=== PATIENT | male | born 1955 | race Hispanic/Latino ===

== ENCOUNTER 2022-07-25 20:23 | Inpatient (IN) | payer SELFPAY ==
[~2022-07-25] VITALS: Ht 165.1 cm; Wt 90.0 kg
--- NOTE | 2022-07-25 20:24 | NUR ---
PT HERE VIA EMS
[2022-07-25 21:38] LABS: HEMATOCRIT 40.8 % (39.0-50.0); HEMOGLOBIN 14.2 g/dl (14.0-18.0); IMMATURE GRANULOCYTES 0.4 % (0.0-5.0); MEAN CELL VOLUME 96.7 fL CALC (80.0-100.0); MEAN CORPUSCULAR HGB 33.6 pG CALC (26.0-32.0); MEAN CORPUSCULAR HGB CONC 34.8 g/dL CAL (32.0-36.0); NEUT# 8.44 thou/uL (1.82-7.42); RED BLOOD COUNT 4.22 mill/uL (4.70-6.10); RED CELL DISTRI WIDTH 13.1 % (11.5-15.5)
[2022-07-25 21:42] LABS: ALBUMIN 3.7 g/dL (3.2-5.0); ALKALINE PHOSPHATASE 136 u/l (38-126); ANION GAP 26 (6-22 (CALC)); BILIRUBIN, TOTAL 2.8 mg/dL (0.0-1.4); BUN 16 mg/dL (8-23); BUN/CREATININE RATIO 15 (12-20 (CALC)); CARBON DIOXIDE 17 mmol/l (22-30); CHLORIDE 93 mmol/l (95-108); CREATININE 1.1 mg/dL (0.7-1.3); ETHYL ALCOHOL 0 mg/dl (0-30); GFR FOR AFR.AMER. > 60 ML/MIN (>=60 (CALC)); GFR OTHER RACES > 60 ML/MIN (>=60 (CALC)); MAGNESIUM 1.8 mg/dL (1.6-2.3); POTASSIUM 3.6 mmol/l (3.5-5.1); SGOT/AST 196 u/l (19-48); SODIUM 133 mmol/l (137-146)
[2022-07-25 21:52] LABS: INTERNATIONAL NORMALIZED RATIO 1.5 RATIO (0.7-1.3); PROTHROMBIN TIME 14.5 SECONDS (9.0-12.5)
--- NOTE | 2022-07-25 21:53 | NUR ---
PATIENT HAD ARRIVED VIA EMS IN WET, COLD CLOTHING AND COVERED IN FECES AND DIRT. CLOTHING REMOVED AND PATIENT BATHED IN WARM WATER. ASSESSED VITALS AND EKG. HR 180S TO 200 RANGE. CARDIZEM 20 MG IV PUSH INITIATED. PATIENT SHIVERING AND UNCOMFORTABLE EVEN WITH BLANKETS. MILAN HUGGER PLACED ON PATIENT AND SOCKS ON FEET. ORAL TEMP IS WNL, BUT PATIENT FINGERS COLD TO TOUCH. PATIENT IS IN BED RECEIVING IV FLUIDS ON CARDIZEM DRIP TITRATED TO 10/HR. AWAITING LAB RESULTS. SAT READING NOT ACCURATE DUE TO PATIENT FINGER TEMPERATURE.
[2022-07-25 22:10] LABS: MYOGLOBIN 3672 ng/mL (0 - 121)
[2022-07-25 22:11] LABS: CPK 4877 u/l (52-200)
[2022-07-25 23:13] LABS: TSH, 3RD GENERATION 0.72 uIU/mL (0.47 - 4.68)
[2022-07-26] VITALS (75 sets, daily range): BP systolic 85–203; BP diastolic 22–174
--- NOTE | 2022-07-26 02:49 | NUR ---
CALLED REPORT TO ICU. HORACIO TOOK REPORT. PATIENT TO ICU 3.
--- NOTE | 2022-07-26 03:00 | NUR ---
67 yr old male admitted icu3 per stretcher from er. incont of urine. pt cleansed. diaper applied. transferred x4 to bed. bed weight obtained. translated per evette. pt has tremors & is confused. pt doesn't answer questions asked. director cardiac shows a fib. ivf infusing per lfa iv. #20 lac saline lock. history per er record. fall precautions cont. bed alarm activated.
--- NOTE | 2022-07-26 04:15 | NUR ---
lab here. blood drawn.
[2022-07-26 04:47] LABS: HEMATOCRIT 35.3 % (39.0-50.0); HEMOGLOBIN 12.5 g/dl (14.0-18.0); IMMATURE GRANULOCYTES 0.3 % (0.0-5.0); MEAN CELL VOLUME 95.7 fL CALC (80.0-100.0); MEAN CORPUSCULAR HGB 33.9 pG CALC (26.0-32.0); MEAN CORPUSCULAR HGB CONC 35.4 g/dL CAL (32.0-36.0); NEUT# 5.3 thou/uL (1.82-7.42); RED BLOOD COUNT 3.69 mill/uL (4.70-6.10); RED CELL DISTRI WIDTH 12.9 % (11.5-15.5)
[2022-07-26 04:55] LABS: ALKALINE PHOSPHATASE 94 u/l (38-126); BILIRUBIN, TOTAL 2.5 mg/dL (0.0-1.4); BUN 13 mg/dL (8-23); BUN/CREATININE RATIO 22 (12-20 (CALC)); CHLORIDE 99 mmol/l (95-108); CREATININE 0.6 mg/dL (0.7-1.3); GFR FOR AFR.AMER. > 60 ML/MIN (>=60 (CALC)); GFR OTHER RACES > 60 ML/MIN (>=60 (CALC)); SGOT/AST 159 u/l (19-48); SODIUM 134 mmol/l (137-146)
[2022-07-26 05:04] LABS: ALBUMIN 2.7 g/dL (3.2-5.0); ANION GAP 13 (6-22 (CALC)); CARBON DIOXIDE 25 mmol/l (22-30); CPK 2821 u/l (52-200); POTASSIUM 2.7 mmol/l (3.5-5.1); TOTAL PROTEIN 6.1 g/dL (6.3-8.2)
--- NOTE | 2022-07-26 08:36 | NUR ---
HAND OFF REPORT GIVEN TO STEFANO WALSH, PATIENT TO M/S UNIT WITH TELE ROOM 278.
--- NOTE | 2022-07-26 08:37 | NUR ---
DISREGARD PREVIOUS NOTE, WRONG CHART.
--- NOTE | 2022-07-26 10:53 | NUR ---
Pt screened for OT services; no OT treatment recommended at this time.
[2022-07-26 17:36] LABS: URINE BILIRUBIN - DIPSTICK NEGATIVE (NEGATIVE); URINE BLOOD DIPSTICK MODERATE (NEGATIVE); URINE COLOR YELLOW; URINE GLUCOSE - DIPSTICK 250 mg/dL (NEGATIVE); URINE KETONE NEGATIVE (NEGATIVE); URINE LEUK ESTERASE NEGATIVE (NEGATIVE); URINE PROTEIN - DIPSTICK NEGATIVE (NEG-TRACE); URINE UROBILINOGEN - DIPSTICK >=8.0 E.U./dL (0.2)
[2022-07-26 17:39] LABS: HEMATOCRIT 35.3 % (39.0-50.0); HEMOGLOBIN 12.4 g/dl (14.0-18.0); IMMATURE GRANULOCYTES 0.7 % (0.0-5.0); MEAN CELL VOLUME 96.2 fL CALC (80.0-100.0); MEAN CORPUSCULAR HGB 33.8 pG CALC (26.0-32.0); MEAN CORPUSCULAR HGB CONC 35.1 g/dL CAL (32.0-36.0); NEUT# 3.78 thou/uL (1.82-7.42); RED BLOOD COUNT 3.67 mill/uL (4.70-6.10); RED CELL DISTRI WIDTH 13.1 % (11.5-15.5)
[2022-07-26 17:41] LABS: URINE NITRITE - DIPSTICK NEGATIVE (Negative)
[2022-07-26 17:52] LABS: URINE WBC 0-2 WBC/hpf (0-5)
[2022-07-26 17:55] LABS: ALBUMIN 2.6 g/dL (3.2-5.0); BUN 10 mg/dL (8-23); CARBON DIOXIDE 29 mmol/l (22-30); CHLORIDE 101 mmol/l (95-108); CPK 1542 u/l (52-200); CREATININE 0.5 mg/dL (0.7-1.3); GFR FOR AFR.AMER. > 60 ML/MIN (>=60 (CALC)); GFR OTHER RACES > 60 ML/MIN (>=60 (CALC)); POTASSIUM 2.6 mmol/l (3.5-5.1); SODIUM 136 mmol/l (137-146)
[2022-07-26 18:03] LABS: MYOGLOBIN 415 ng/mL (0 - 121)
--- NOTE | 2022-07-26 20:00 | NUR ---
dr caraballo called this journalists and other writers. update given.
--- NOTE | 2022-07-26 20:15 | NUR ---
eyes closed. nad. no apparent d/t's. no sz. o2 cont per nc. compliance monitor shows a fib. ivf infusing well. solano cath in place. urine cloudy ronen. requires total care for all needs. turned & repositiond. fall precautions & bed alarm conts.
--- NOTE | 2022-07-26 21:15 | NUR ---
pt is VERY hot. temp 98.8 per forehead(gun). temp 104.1 rectal. tylenol 650mg supp inserted, ice packs applied to bilat armpits, blanket removed. air conditioning lowered. dr caraballo notified. orders rec'd.
--- NOTE | 2022-07-26 22:30 | NUR ---
[id number] temp 103.1 rectal. toradol 30mg iv given. rt @ bedside, sternal rub done & he thinks pt is less responsive. requested rt to draw abg. results rec'd. o2 increased to 3 l/m. ativan gtt decreased to 1mghr. & pt remains sedated
--- NOTE | 2022-07-26 23:00 | NUR ---
lou from ct called this rfp writer-informed [address] would be 2340. instructed her ct could be done @ midnight.
[2022-07-27] VITALS (57 sets, daily range): BP systolic 70–115; BP diastolic 39–81
--- NOTE | 2022-07-27 00:30 | NUR ---
to ct per bed accompanied by this life insurance underwriter & riveting machine operator automatic.
--- NOTE | 2022-07-27 01:00 | NUR ---
returned from ct.
--- NOTE | 2022-07-27 02:00 | NUR ---
eyes closed. ivf cont. compliance monitor shows a fib. poorly responsive.
--- NOTE | 2022-07-27 04:30 | NUR ---
dr caraballo called this board writer. updated on pts condition. orders rec'd.
--- NOTE | 2022-07-27 06:00 | NUR ---
ivf cont. vitals improving. athletic monitor shows a fib.
[2022-07-27 06:18] LABS: HEMATOCRIT 35.6 % (39.0-50.0); HEMOGLOBIN 11.9 g/dl (14.0-18.0); MEAN CELL VOLUME 100.8 fL CALC (80.0-100.0); MEAN CORPUSCULAR HGB 33.7 pG CALC (26.0-32.0); MEAN CORPUSCULAR HGB CONC 33.4 g/dL CAL (32.0-36.0); RED BLOOD COUNT 3.53 mill/uL (4.70-6.10); RED CELL DISTRI WIDTH 14.4 % (11.5-15.5)
[2022-07-27 06:38] LABS: INTERNATIONAL NORMALIZED RATIO 1.9 RATIO (0.7-1.3); PROTHROMBIN TIME 18.4 SECONDS (9.0-12.5)
[2022-07-27 06:45] LABS: ALBUMIN 2.1 g/dL (3.2-5.0); ALKALINE PHOSPHATASE 71 u/l (38-126); BUN 15 mg/dL (8-23); BUN/CREATININE RATIO 15 (12-20 (CALC)); CHLORIDE 106 mmol/l (95-108); CPK 1277 u/l (52-200); GFR FOR AFR.AMER. > 60 ML/MIN (>=60 (CALC)); GFR OTHER RACES > 60 ML/MIN (>=60 (CALC)); MAGNESIUM 1.8 mg/dL (1.6-2.3); POTASSIUM 2.7 mmol/l (3.5-5.1); SODIUM 142 mmol/l (137-146); TOTAL PROTEIN 5.2 g/dL (6.3-8.2)
[2022-07-27 06:56] LABS: ANION GAP 17 (6-22 (CALC)); BILIRUBIN, TOTAL 4.3 mg/dL (0.0-1.4); CARBON DIOXIDE 22 mmol/l (22-30); SGOT/AST 456 u/l (19-48)
--- NOTE | 2022-07-27 07:25 | NUR ---
pt resting in bed with eyes closed; no acute distress noted; assessment completed at this time; pupils reactive; pt on verbal, semicon; no reaction to visual threats; no s/sx of pain noted; no n/v; resp even and unlabored; lungs coarse throughout; skin color wnl; o2 per nc at 3L; hr irreg; wk pulses; trace edema noted; afib on monitor; abd soft with bs hypoactive; no bm noted per fiction and nonfiction prose writer; solano to gravity; #20 to rac with amio gtt infusing at 1mg/min; #20 lfa (ems) to lfa with ivf, ativan gtt 1mg/hr; #20 to lac with levophed gtt infusing at 10mcg/min; no redness or edema noted at site; wounds noted to abd fold, sacrum, groin; repositioned; will continue to monitor
--- NOTE | 2022-07-27 08:04 | NUR ---
RESTING IN BED WITH EYES CLOSED; NO ACTUTE DISTRESS NOTED; O2 PER NC; WILL CONTINUE TO MONITOR
--- NOTE | 2022-07-27 08:44 | NUR ---
Dr Zendejas present at bedside to assess pt
--- NOTE | 2022-07-27 09:19 | NUR ---
SPEECH PATHOLOGY-- COMMUNITY HEALTH WORKER ATTEMPTED TO SEE PT. COMMUNITY HEALTH WORKER UNABLE TO WAKE PT. WILL ATTEMPT AT ANOTHER TIME.
--- NOTE | 2022-07-27 10:08 | NUR ---
resting in bed with eyes closed; appears slightly more arousable; reacts to tactile stimuli, nail bed pressure; iv intact; will continue to monitor
--- NOTE | 2022-07-27 10:37 | NUR ---
Dr Zendejas informed of o2 sat of 84%; RT notified for abg;
--- NOTE | 2022-07-27 10:56 | NUR ---
ABG results reviewed with ; o2 currently at 8L NC; awaiting others
--- NOTE | 2022-07-27 11:18 | NUR ---
Dr Zendejas updated in pt condition; o2 sat improved; pt has laila suctioned well; o2 sat currently 94% on 8L NC; staff to continue with current treatment; will continue to monitor
--- NOTE | 2022-07-27 11:59 | NUR ---
continues to rest with eyes closed; no acute distress noted; ID with Dr Swain completed via TeleHealth; solano to gravity; afib on monitor; will continue to monitor
--- NOTE | 2022-07-27 13:08 | NUR ---
S: KYM CLINE is a 67 M who presents with severe sepsis. He has a history of chronic alcohol abuse. All medications in patient's chart were reviewed. O: VS: BP 96/61 mmHg, P 113 bpm, RR 28 bpm, T 98.5 F W 87.997 kg, HT 165.1 cm, Scr= 1 mg/dL, CrCl= 73 ml/min A: Blood culture is pending. P: Patient is on azithromycin 500mg IV Q24H and cefepime 2g IV Q8H. Vancomycin ordered for pharmacy to dose. Start Vancomycin 1g IV Q12H. Vancomycin trough is drawn before the 4th dose on 07/29/2022 @ 0200. Vancomycin goal trough is between 15-20 mcg/ml. Pharmacy will follow and or advise on antibiotics use as needed.
--- NOTE | 2022-07-27 13:52 | NUR ---
US at bedside
--- NOTE | 2022-07-27 14:00 | NUR ---
resting in bed with eyes closed; appears more arousable; movement to upper extremmities noted; iv's intact and patent; afib on monitor; solano to gravity; repositioned; will continue to monitor
--- NOTE | 2022-07-27 15:01 | NUR ---
Dr Burgos called this fha underwriter; wound status explained; will continue to monitor
--- NOTE | 2022-07-27 15:31 | NUR ---
wound care DRs present at bedside
--- NOTE | 2022-07-27 16:11 | NUR ---
resting with eye closed; repositioned; afib on monitor; solano to gravity; will continue to monitor
--- NOTE | 2022-07-27 17:35 | NUR ---
TELEHEALTH CONSULT COMPLETED WITH DR ESTRELLA
--- NOTE | 2022-07-27 17:50 | NUR ---
Dr Zendejas updated on pt condition; made aware of K+; orders to be placed
--- NOTE | 2022-07-27 17:59 | NUR ---
resting with eyes closed; more movement noted to upper extremities; more arousable; solano to gravity; iv intact and patent; repositioned; wound care provided; afib on monitor;
--- NOTE | 2022-07-27 18:20 | NUR ---
; pt transported to CT Scan via bed accompanied by RNs x2; dry paste supervisor in place; o2 per nc; afib on monitor; gtts continued
--- NOTE | 2022-07-27 19:15 | NUR ---
very drowsy. does not open eyes. speaks in low mumbled tones. translated per louie alonzo. knows his name, knows he's in the hospital, says he doesn't live anywhere, he doesn't have any family, ambulance brought him in & he hangs out @ the "[employer] [place] o2 cont per nc. athletic monitor shows a fib. ivf infusing well. solano cath in place. urine cloudy ronen. turned & repositioned. requires total care for all needs.
--- NOTE | 2022-07-27 22:00 | NUR ---
eyes closed. no acute distress. diagnostic cardiac sonographer shows a fib.
[2022-07-28] VITALS (62 sets, daily range): BP systolic 92–133; BP diastolic 63–94
--- NOTE | 2022-07-28 00:14 | NUR ---
lab here. blood drawn.
--- NOTE | 2022-07-28 02:31 | NUR ---
lab here. blood drawn.
[2022-07-28 02:43] LABS: HEMATOCRIT 37.2 % (39.0-50.0); HEMOGLOBIN 12.7 g/dl (14.0-18.0); MEAN CELL VOLUME 100.5 fL CALC (80.0-100.0); MEAN CORPUSCULAR HGB 34.3 pG CALC (26.0-32.0); MEAN CORPUSCULAR HGB CONC 34.1 g/dL CAL (32.0-36.0); RED BLOOD COUNT 3.7 mill/uL (4.70-6.10); RED CELL DISTRI WIDTH 15.1 % (11.5-15.5)
[2022-07-28 03:01] LABS: ALBUMIN 2.4 g/dL (3.2-5.0); ALKALINE PHOSPHATASE 59 u/l (38-126); ANION GAP 13 (6-22 (CALC)); BILIRUBIN, TOTAL 5.2 mg/dL (0.0-1.4); BUN 24 mg/dL (8-23); BUN/CREATININE RATIO 27 (12-20 (CALC)); CARBON DIOXIDE 25 mmol/l (22-30); CHLORIDE 110 mmol/l (95-108); CPK 660 u/l (52-200); CREATININE 0.9 mg/dL (0.7-1.3); GFR FOR AFR.AMER. > 60 ML/MIN (>=60 (CALC)); GFR OTHER RACES > 60 ML/MIN (>=60 (CALC)); INTERNATIONAL NORMALIZED RATIO 1.6 RATIO (0.7-1.3); LIPASE 1150 u/l (23-300); MAGNESIUM 2.1 mg/dL (1.6-2.3); POTASSIUM 3.5 mmol/l (3.5-5.1); PROTHROMBIN TIME 15.5 SECONDS (9.0-12.5); SGOT/AST 412 u/l (19-48); SODIUM 144 mmol/l (137-146); TOTAL PROTEIN 5.7 g/dL (6.3-8.2)
--- NOTE | 2022-07-28 04:00 | NUR ---
eyes closed. no resp distress. hand i thermal cutter shows a fib. ivf infusing well. o2 cont.
--- NOTE | 2022-07-28 05:00 | NUR ---
bed bath & bed change x2 assists.
--- NOTE | 2022-07-28 06:10 | NUR ---
sao2 86%. rt notified.
--- NOTE | 2022-07-28 08:00 | NUR ---
pt resting in bed with eyes closed; no acute distress noted; pt moans and withdraws to tactile stimuli; non verbal besides moaning; assessment completed at this time; pupils reactive; no s/sx/ facial grimaces of pain noted; no n/v noted; resp even and unlabored; lungs coarse anter with rales noted to secret code expert bases; skin color wnl; o2 per nc at 3L with 100% NRB; o2 sat noted 100%; will attempt to titrate o2; brooch maker novelty cough noted; hr irreg; doppler pedal pulses; edema noted to ble and bilat arms; afib on monitor; abd soft with bs hypoactive; no bm noted per software writer; solano to gravity draining clear ronen urine; cath strap intact; #20 flushed and leaking at rac; catheter removed with catheter tip intact; #20 to lac patent with ativan gtt infusing at 1mg/hr; #20 to lfa with ivf, levophed gtt infusing at 10mcg/min; no redness or edema noted at site; excoriation/redness noted to abd fold; dressing cdi to sacrum; repositioned; call [facility] within reach; will continue to monitor closely
--- NOTE | 2022-07-28 09:20 | NUR ---
Dr Zendejas present at bedside to assess pt
--- NOTE | 2022-07-28 10:08 | NUR ---
resting in bed with eyes closed; no apparent distress noted; solano to gravity; afib on monitor; repositioned; ativan gt titrated off to assess neuro status while awake; will continue to monitor
--- NOTE | 2022-07-28 12:13 | NUR ---
pt sitting at the side of the bed eating lunch; offers no complaints; iv intact and patent; levophed at 6mcg/min; no redness or edema noted at sites; call light within reach; will continue to monitor
--- NOTE | 2022-07-28 12:17 | NUR ---
resting in bed with eyes closed; moans out occasionally; remains nonverbal with staff; more arounsable but does not make eye contact or track staff; solano to gravity; afib on monitor; repositioned; will continue to monitor-
--- NOTE | 2022-07-28 14:00 | NUR ---
resting in bed with eyes closed; attempts to open right eye to tactile stimuli; moans/garbled speech; repositioned; dressing to sacrum cdi; afib on monitor; solano to gravity; o2 per HFNC at 6L; will continue to monitor
--- NOTE | 2022-07-28 14:22 | NUR ---
US Shade present at bedside
--- NOTE | 2022-07-28 16:08 | NUR ---
resting in bed with eyes closed; more arousable than this am; unintelligible speech noted; repositioned; solano to gravity; afib on monitor; o2 per nc; will continue to monitor
--- NOTE | 2022-07-28 17:11 | NUR ---
suctioned for blood tinged sputum; lg amount
--- NOTE | 2022-07-28 17:51 | NUR ---
continues to rest in bed with eyes closed; does attempt to open eyes with loud stimuli; iv intact and patent; no redness or edema noted at site; levophed gtt at 6mcg/min; solano to gravity; o2 per nc; repositioned to right side;
--- NOTE | 2022-07-28 18:14 | NUR ---
Dr Zendejas informed per automotive service writer of rhonchi lung sounds; informed pt has been suctioned for good amount of blood tinged sputum;
[2022-07-29] VITALS (167 sets, daily range): BP systolic 79–142; BP diastolic 53–112
[2022-07-29 02:20] LABS: HEMATOCRIT 40.6 % (39.0-50.0); HEMOGLOBIN 13.5 g/dl (14.0-18.0); MEAN CELL VOLUME 101.2 fL CALC (80.0-100.0); MEAN CORPUSCULAR HGB 33.7 pG CALC (26.0-32.0); MEAN CORPUSCULAR HGB CONC 33.3 g/dL CAL (32.0-36.0); RED BLOOD COUNT 4.01 mill/uL (4.70-6.10); RED CELL DISTRI WIDTH 15.5 % (11.5-15.5)
[2022-07-29 02:31] LABS: INTERNATIONAL NORMALIZED RATIO 1.4 RATIO (0.7-1.3); PROTHROMBIN TIME 13.3 SECONDS (9.0-12.5)
[2022-07-29 02:32] LABS: ALBUMIN 2.4 g/dL (3.2-5.0); ANION GAP 10 (6-22 (CALC)); BILIRUBIN, TOTAL 4.2 mg/dL (0.0-1.4); BUN 17 mg/dL (8-23); BUN/CREATININE RATIO 31 (12-20 (CALC)); CARBON DIOXIDE 27 mmol/l (22-30); CHLORIDE 114 mmol/l (95-108); CREATININE 0.6 mg/dL (0.7-1.3); GFR FOR AFR.AMER. > 60 ML/MIN (>=60 (CALC)); GFR OTHER RACES > 60 ML/MIN (>=60 (CALC)); MAGNESIUM 2.2 mg/dL (1.6-2.3); POTASSIUM 3.1 mmol/l (3.5-5.1); SGOT/AST 415 u/l (19-48); SODIUM 148 mmol/l (137-146); TOTAL PROTEIN 5.9 g/dL (6.3-8.2)
[2022-07-29 02:36] LABS: ALKALINE PHOSPHATASE 123 u/l (38-126)
--- NOTE | 2022-07-29 03:13 | NUR ---
Dr. Zendejas informed of platelet and potassium value.
--- NOTE | 2022-07-29 05:33 | NUR ---
0525 DR HARRIS AT BEDSIDE TO INTUBATE PATIENT. 0527 20MG ETOMIDATE GIVEN IVP BY MD, FOLLOWED BY 100MG SUCCINYLCHOLINE 0530 PATIENT INTUBATED WITH #8ETT, 24CM AT THE LIP, POSITIVE ETCO2 COLOR CHANGE, AND BILATERAL BREATH SOUNDS CXR ORDERED TO CONFIRM PLACEMENT.
--- NOTE | 2022-07-29 05:39 | NUR ---
Patient unesponsive and having shallow breathing. Blood gas done by respiratory. Dr. Zendejas infromed of result. Intubation was ordred. 0530: Patient intubated by Dr. Sexton.
--- NOTE | 2022-07-29 05:46 | NUR ---
0450: Patient bathe. Desaturating and unresponsive. Respiratory was informed.
--- NOTE | 2022-07-29 09:10 | NUR ---
Dr Velez came up to place RIJ central line, OG also placed and verified by x-ray, he is on no sedation but only responds to pain, non-purposeful movements
--- NOTE | 2022-07-29 11:48 | NUR ---
pt with some more movement but remains non-purposeful, potassium replaced
--- NOTE | 2022-07-29 14:28 | NUR ---
pt given complete bath with linen change, somewhat responsive but remains non-purposeful
--- NOTE | 2022-07-29 14:35 | NUR ---
PT PRESENTS WITH SEVERE SEPSIS. ALL MEDS IN PTS CHART HAVE BEEN REVIEWED. RENAL FUNCTION REMAINS UNCHANGED WITH SCR 0.9 (1) AND CRCL 73 VANCOMYCIN TROUGH ON 07/29 @ 0200 = 10 MCG/ML, GOAL = 15-20 MCG/ML INCREASE TO 1G IV Q8H. WILL RE-CHECK TROUGH 07/30 @ 0230. [facility]
--- NOTE | 2022-07-29 17:12 | NUR ---
pt became more awake and was started on propofol
[2022-07-30] VITALS (62 sets, daily range): BP systolic 72–128; BP diastolic 39–90
[2022-07-30 02:53] LABS: HEMOGLOBIN 11.8 g/dl (14.0-18.0); IMMATURE GRANULOCYTES 0.9 % (0.0-5.0); MEAN CELL VOLUME 98.6 fL CALC (80.0-100.0); MEAN CORPUSCULAR HGB 33.8 pG CALC (26.0-32.0); MEAN CORPUSCULAR HGB CONC 34.3 g/dL CAL (32.0-36.0); NEUT# 5.01 thou/uL (1.82-7.42); RED BLOOD COUNT 3.49 mill/uL (4.70-6.10); RED CELL DISTRI WIDTH 15.3 % (11.5-15.5)
[2022-07-30 02:55] LABS: HEMATOCRIT 34.4 % (39.0-50.0)
[2022-07-30 03:01] LABS: INTERNATIONAL NORMALIZED RATIO 1.3 RATIO (0.7-1.3); PROTHROMBIN TIME 12.7 SECONDS (9.0-12.5)
[2022-07-30 03:02] LABS: ALBUMIN 2.1 g/dL (3.2-5.0); BILIRUBIN, TOTAL 3.9 mg/dL (0.0-1.4); CREATININE 1.5 mg/dL (0.7-1.3); POTASSIUM 2.7 mmol/l (3.5-5.1); TOTAL PROTEIN 5.2 g/dL (6.3-8.2)
--- NOTE | 2022-07-30 03:21 | NUR ---
Informed [facility] regarding VAncomycin Trough - 29. Dose held.
--- NOTE | 2022-07-30 10:02 | NUR ---
Dr Burton has been to see pt, pt will continue sedated and re-evaluated tomorrow for extubation, SCD's applied, OG to russ ZEPEDA to bedside, pt is edematous with +2 generalized edema, pupils equal and non-reactive 2mm, thick/harrison sputum, remains A-fib with Levophed infusing
--- NOTE | 2022-07-30 11:04 | NUR ---
Pt intubated over weekend will required new order to resume PT.
--- NOTE | 2022-07-30 15:09 | NUR ---
Dr Truong has called and seen pt, POC reviewed
--- NOTE | 2022-07-30 19:30 | NUR ---
eyes closed. vent cont. sealing machine operator shows a fib. ivf infusing per rij tlc. solano cath in place. urine light ronen. bilat scds on. turned & repositioned. requires total care for all needs.
--- NOTE | 2022-07-30 22:00 | NUR ---
vent cont. sx prn per rt. case monitor shows a fib.
[2022-07-31] VITALS (51 sets, daily range): BP systolic 81–152; BP diastolic 56–103
--- NOTE | 2022-07-31 00:01 | NUR ---
vent cont. no apparent distress. solano draining well
--- NOTE | 2022-07-31 02:00 | NUR ---
vent cont. no apparent ditress. conveyor monitor shows a fib.
--- NOTE | 2022-07-31 03:20 | NUR ---
Called [facility] and ordered air matress bed for patient. Recorded in log book.
--- NOTE | 2022-07-31 04:14 | NUR ---
blood drawn & sent to lab.
[2022-07-31 05:35] LABS: HEMATOCRIT 35.6 % (39.0-50.0); HEMOGLOBIN 12.7 g/dl (14.0-18.0); MEAN CELL VOLUME 95.7 fL CALC (80.0-100.0); MEAN CORPUSCULAR HGB 34.1 pG CALC (26.0-32.0); MEAN CORPUSCULAR HGB CONC 35.7 g/dL CAL (32.0-36.0); RED BLOOD COUNT 3.72 mill/uL (4.70-6.10); RED CELL DISTRI WIDTH 14.9 % (11.5-15.5)
[2022-07-31 05:49] LABS: INTERNATIONAL NORMALIZED RATIO 1.3 RATIO (0.7-1.3); PROTHROMBIN TIME 13.2 SECONDS (9.0-12.5)
--- NOTE | 2022-07-31 06:00 | NUR ---
vent cont unassisted by pt. ivf infusing well.
[2022-07-31 06:01] LABS: BILIRUBIN, TOTAL 3.7 mg/dL (0.0-1.4); CREATININE 1.6 mg/dL (0.7-1.3); MAGNESIUM 1.7 mg/dL (1.6-2.3); POTASSIUM 2.8 mmol/l (3.5-5.1); TOTAL PROTEIN 5.1 g/dL (6.3-8.2)
--- NOTE | 2022-07-31 07:30 | NUR ---
PT IS SLEEPING, EYES CLOSED. PT IS ON VENT 40/500/24/5. PT ASSESSMENT IS COMPLETE. PT IS AROUSABLE TO TOUCH. PT HAS BEEN SUCTIONED, AND SPUTUM SPECIMEN COLLECTED AT THIS TIME. PT R'CD PO, FACE AND JOSELINE CARE. PT UNABLE TO FOLLOW COMMANDS. PT IS CURRENTLY ON 20 MCG OF DIPRAVAN, LEVO AT 6 MCG. PT IS ON FALL PRECAUTIONS AND PT HAS BEEN REPOSITIONED. WILL CONTINUE TO MONITOR.
--- NOTE | 2022-07-31 08:30 | NUR ---
PT HAS BEEN TRIALED, DIPRAVAN HAS BEEN TURNED OFF. WILL CONTINUE TO MONITOR
--- NOTE | 2022-07-31 09:05 | NUR ---
PRESENT ON UNIT, PT HAS FAILED TO TAKE ANY SPONTANEOUS BREATHS. PLACED BACK ON DIPRAVAN @ 20MCG PER PHYS. WILL CONTINUE TO MONITOR PT.
--- NOTE | 2022-07-31 11:30 | NUR ---
PT IS RESTING, PT GRIMACES TO ANY PHYSICAL STIMLUATION. PT HAS NO CHANGE TO STATUS, WILL CONTINUE TO MONITOR.
--- NOTE | 2022-07-31 13:30 | NUR ---
PT HAS NO CHANGE TO ASSESSMENT AT THIS TIME. WILL CONTINUE TO MONITOR.
--- NOTE | 2022-07-31 14:00 | NUR ---
SPOKE TO DR. ESTRELLA, R'CD ORDERS TO START SEDATION VACATION. AND PLACING ADDITIONAL ORDERS. PT IS AROUSABLE TO PHYSICAL STIMULI. PT HAS R'CD PO CARE. AND U/S HAS COME IN TO DO PT. ECHO. WILL CONTINUE TO MONITOR.
--- NOTE | 2022-07-31 16:26 | NUR ---
ASSESSED PT, PT IS AWAKE. COUNSELING DIRECTOR BETTIE AT BEDSIDE AND ASKED PT OF HIS WISHES TO END OF LIFE. PT SHOOK HIS HEAD YES THAT HE WANTS TO LIVE. PT IS BEING CLOSELY MONITORED.
--- NOTE | 2022-07-31 19:15 | NUR ---
vent cont assisted by pt. eyes are open & pt is tracking this promotion writer. traffic monitor specialist shows a fib. ivf infusing well per rij tlc. solano cath in place urine lt ronen. bilat scds cont. has gen body edema. all exts elevated on pillows. fall precautions cont
--- NOTE | 2022-07-31 22:00 | NUR ---
remains off sedation. eyes open when care given. nad.
[2022-08-01] VITALS (43 sets, daily range): BP systolic 75–143; BP diastolic 52–87
--- NOTE | 2022-08-01 00:01 | NUR ---
vent cont assisted by pt. fast food worker shows a fib.
--- NOTE | 2022-08-01 02:00 | NUR ---
denzel simon assisted by
--- NOTE | 2022-08-01 04:20 | NUR ---
rt here. abgs drawn.
--- NOTE | 2022-08-01 05:00 | NUR ---
xray here. pcxr obtained. blood drawn & sent to lab. bed & bath done.
[2022-08-01 05:32] LABS: ALBUMIN 2.2 g/dL (3.2-5.0); CREATININE 2.1 mg/dL (0.7-1.3); INTERNATIONAL NORMALIZED RATIO 1.4 RATIO (0.7-1.3); POTASSIUM 2.9 mmol/l (3.5-5.1); PROTHROMBIN TIME 13.3 SECONDS (9.0-12.5)
--- NOTE | 2022-08-01 06:17 | NUR ---
SPOKE WITH PATRICK FROM [facility]. STAT DELIVERY FOR AIR MATTRESS IS PLACED. THERE WAS A MESSAGE HOLDING UP SHIPMENT.
--- NOTE | 2022-08-01 07:35 | NUR ---
spoke with Dr Reyez, updated on pt condition
--- NOTE | 2022-08-01 08:50 | NUR ---
pt switched to spontaneous/CPAP setting on vent for weaning trial, he is awake and alert
[2022-08-01 08:56] LABS: HEMATOCRIT 36.1 % (39.0-50.0); HEMOGLOBIN 12.4 g/dl (14.0-18.0); MEAN CELL VOLUME 97.8 fL CALC (80.0-100.0); MEAN CORPUSCULAR HGB 33.6 pG CALC (26.0-32.0); MEAN CORPUSCULAR HGB CONC 34.3 g/dL CAL (32.0-36.0); RED BLOOD COUNT 3.69 mill/uL (4.70-6.10); RED CELL DISTRI WIDTH 15.2 % (11.5-15.5)
--- NOTE | 2022-08-01 09:24 | NUR ---
PT. EXTUBATED AND PLACED ON 2L NC.
--- NOTE | 2022-08-01 09:25 | NUR ---
pt successfuly extubated, he remains awake and alert, has loose cough, placed on 2 Lpm NC
--- NOTE | 2022-08-01 10:25 | NUR ---
speech in to eval pt for swallow study
--- NOTE | 2022-08-01 12:12 | NUR ---
pt repositioned, sitting up in bed, small sips of water given, pt then with wet/loose cough, HOB remains elevated, awaiting speech to come re-eval
--- NOTE | 2022-08-01 13:39 | NUR ---
Dr Truong to see pt on video
--- NOTE | 2022-08-01 13:53 | NUR ---
video swallow eval finished, pt sitting up in bed with no sign of distress
--- NOTE | 2022-08-01 15:22 | NUR ---
pt moved to air matress bed, re-weighed with new bed scale
--- NOTE | 2022-08-01 15:38 | NUR ---
O2 SAT 100% ON 2L NC. O2 PLACED STANDBY.
--- NOTE | 2022-08-01 16:21 | NUR ---
pt awake/alert, moving all extremities, wet, productive cough, titrating levophed off
--- NOTE | 2022-08-01 18:25 | NUR ---
HOB raised and pillows behind back, pt awake/alert, attempted to feed pt dinner, he was found to be pocketing food, also coughs after spoon sips of nectar thick water, BP remains stable with levophed off
--- NOTE | 2022-08-01 19:30 | NUR ---
awake. coarse breath sounds bilat. no acute resp diff. hob elevated. has loose nonprod cough. ekg monitor shows a fib. rij tlc in place & saline locked. gen edema appears decreased this shift. solano cath in place. urine yellow. turned & repositioned. requires total care for all needs. air mattress conts.
--- NOTE | 2022-08-01 22:00 | NUR ---
awake. no distress. has prod cough of tcreamy yellow sputum.
[2022-08-02] VITALS (52 sets, daily range): BP systolic 96–151; BP diastolic 49–102
--- NOTE | 2022-08-02 00:01 | NUR ---
awake. no distress. groundwater monitoring technician shows a fib.
--- NOTE | 2022-08-02 02:00 | NUR ---
awake. has been repositioned in bed. no distress.
--- NOTE | 2022-08-02 04:00 | NUR ---
awake. cont to have productive cough. no distress.
--- NOTE | 2022-08-02 04:20 | NUR ---
blood drawn & sent to lab.
--- NOTE | 2022-08-02 05:56 | NUR ---
has been aawake all shift. no resp distress. groundwater monitoring technician shows a fib.
[2022-08-02 06:40] LABS: HEMATOCRIT 34.5 % (39.0-50.0); HEMOGLOBIN 12.1 g/dl (14.0-18.0); MEAN CELL VOLUME 96.9 fL CALC (80.0-100.0); MEAN CORPUSCULAR HGB CONC 35.1 g/dL CAL (32.0-36.0); RED BLOOD COUNT 3.56 mill/uL (4.70-6.10); RED CELL DISTRI WIDTH 15.5 % (11.5-15.5)
[2022-08-02 07:15] LABS: ALBUMIN 2.1 g/dL (3.2-5.0); BILIRUBIN, TOTAL 4.6 mg/dL (0.0-1.4); CREATININE 2.1 mg/dL (0.7-1.3); MAGNESIUM 1.8 mg/dL (1.6-2.3); POTASSIUM 2.6 mmol/l (3.5-5.1); TOTAL PROTEIN 5.4 g/dL (6.3-8.2)
--- NOTE | 2022-08-02 08:00 | NUR ---
patient is a/o to self, very soft spoken, garbled speech. 3mm perrla. denies pain at this time. coarse lung sounds throughout. active bowel sounds. firm distended abdomen. dry warm skin. small openings on lower abdomen/groin area. buttpaste applied to areas needed. temp 96.9F. weak pulses. scds in place. sat him up right to drink small sips of water. tolerated well. weak hand machine cleaner. solano yellow urine. safety measures in place. call light in reach. will continue to monitor per hospital's policy.
--- NOTE | 2022-08-02 10:00 | NUR ---
PATIENT SITTING UP IN BED, SUCTIONED, REPOSITIONED AGAIN. SAFETY MEASURES IN PLACE.
--- NOTE | 2022-08-02 12:00 | NUR ---
COUPLE BITES OF APPLE SAUCE GIVEN, STARTED TO COUGH. THICKEN WATER GIVEN.
--- NOTE | 2022-08-02 16:00 | NUR ---
CLEANED, HAD A BM, NEW SHEETS, WASHED UP, MORE BUTT PASTE APPLIED.
--- NOTE | 2022-08-02 22:25 | NUR ---
patient asleep, Dr. Zendejas updated regarding pateint's status.
[2022-08-03] VITALS (25 sets, daily range): BP systolic 99–146; BP diastolic 66–97
--- NOTE | 2022-08-03 00:11 | NUR ---
patient asleep. BP 115/82. HR 83, sius rhythm in the monitor.
--- NOTE | 2022-08-03 00:38 | NUR ---
patient has large bowel movement. cleaned and turned. Sacral ulcer cleaned.
--- NOTE | 2022-08-03 02:02 | NUR ---
Patient asleep. Turned.
--- NOTE | 2022-08-03 03:39 | NUR ---
Patient awake. Able to drink water without problem. Turned
[2022-08-03 06:36] LABS: HEMATOCRIT 35.7 % (39.0-50.0); HEMOGLOBIN 12.4 g/dl (14.0-18.0); MEAN CELL VOLUME 97.5 fL CALC (80.0-100.0); MEAN CORPUSCULAR HGB 33.9 pG CALC (26.0-32.0); MEAN CORPUSCULAR HGB CONC 34.7 g/dL CAL (32.0-36.0); RED BLOOD COUNT 3.66 mill/uL (4.70-6.10); RED CELL DISTRI WIDTH 16.6 % (11.5-15.5)
[2022-08-03 06:43] LABS: ALBUMIN 2.1 g/dL (3.2-5.0); BILIRUBIN, TOTAL 4.9 mg/dL (0.0-1.4); CREATININE 2.2 mg/dL (0.7-1.3); TOTAL PROTEIN 5.6 g/dL (6.3-8.2)
[2022-08-03 06:48] LABS: POTASSIUM 3.2 mmol/l (3.5-5.1)
[2022-08-03 06:50] LABS: INTERNATIONAL NORMALIZED RATIO 1.4 RATIO (0.7-1.3); PROTHROMBIN TIME 13.3 SECONDS (9.0-12.5)
--- NOTE | 2022-08-03 08:00 | NUR ---
patiet is a/o, denies pain at this time. 3mm perrla. clear speech. crackles in all lung bases. active bowel sounds. soft distended abdomen. trace edema ble/bue. strong equal ahnd rooming house operator. no arm drifts. wound on coccyx, c/d/i. vitals are stable/ safety measures in place. call light in reach. will continue to monitor per hospital's policy.
--- NOTE | 2022-08-03 10:00 | NUR ---
patient is resting in bed
--- NOTE | 2022-08-03 12:00 | NUR ---
patient sitting up right, bites of food at a time.
--- NOTE | 2022-08-03 16:00 | NUR ---
patient washed and clean sheets applied on bed. changed dressing. buttpaste applied onto adbomen folds.
--- NOTE | 2022-08-03 17:58 | NUR ---
PATIENT RESTING VERY WELL IN BED.
[2022-08-04] VITALS (24 sets, daily range): BP systolic 91–123; BP diastolic 60–86
--- NOTE | 2022-08-04 00:22 | NUR ---
patient had BM. cleaned and made comfortable. Wound redressed.
--- NOTE | 2022-08-04 04:05 | NUR ---
patient asleep. Not in distress.
[2022-08-04 06:00] LABS: HEMATOCRIT 34.9 % (39.0-50.0); HEMOGLOBIN 12.1 g/dl (14.0-18.0); MEAN CORPUSCULAR HGB CONC 34.7 g/dL CAL (32.0-36.0); RED BLOOD COUNT 3.56 mill/uL (4.70-6.10)
--- NOTE | 2022-08-04 06:04 | NUR ---
patient in bed awake. Instructed to do deep breathing exercise.
[2022-08-04 06:32] LABS: ALBUMIN 2.2 g/dL (3.2-5.0); CREATININE 2.1 mg/dL (0.7-1.3); POTASSIUM 3.2 mmol/l (3.5-5.1)
--- NOTE | 2022-08-04 07:00 | NUR ---
Assumed care from NOC RN. Patient resting comfortably in bed. Safety measures activated. Bed alarm armed. VSS. NAD. Expresses no needs nor endorses any pain. iTRACE for IV therapies, central line assessed for patency. Carbajal draining to gravity, on RA. No other lines or drains present. No further interventions at this time.
[2022-08-04 07:02] LABS: INTERNATIONAL NORMALIZED RATIO 1.4 RATIO (0.7-1.3); PROTHROMBIN TIME 13.3 SECONDS (9.0-12.5)
--- NOTE | 2022-08-04 14:00 | NUR ---
Patient is resting comfortably in bed. In no acute distress. Easily aroused and reamins alert for conversation. Denies pain or needs at this time. Adequate SpO2 on RA. Tolerating oral intake. Incontinent of stool. Carbajal draining to gravity. SCDs in place. Bed alarm armed. All safety measures in place. Physical Medicine at bedside. Linens changed, bathed, dressing change this past hour with interventions.
--- NOTE | 2022-08-04 18:00 | NUR ---
Patient is resting comfortably in bed. In no acute distress. Easily aroused and reamins alert for conversation. Denies pain or needs at this time. Adequate SpO2 on RA. Tolerating oral intake. Incontinent of stool. Carbajal draining to gravity. SCDs in place. Bed alarm armed. All safety measures in place. -
--- NOTE | 2022-08-04 19:38 | NUR ---
BEDSIDE SHIFT REPORT DONE. PATIENT REPORTS NO DISCOMFORT. CALL LIGHT AND PERSONAL BELONGING WITHIN REACH. WILL CONTINUE TO MONITOR.
--- NOTE | 2022-08-04 21:41 | NUR ---
PATIENT SHIVERING TEMP CHECK 96.7 WARM BLANKETS ADDED WILL RECHECK AND CONTINUE TO MONITOR. PATIENT REPORTS NO DISCOMFORT. SAFETY MEASURES WNL
--- NOTE | 2022-08-04 22:12 | NUR ---
TEMP RECHECKED ITS AT 97 FAHRENHEIT. WILL CONTINUE TO MONITOR. PATIENT REPORTS NO DISCOMFORT.
[2022-08-05] VITALS (24 sets, daily range): BP systolic 82–119; BP diastolic 55–87
--- NOTE | 2022-08-05 02:52 | NUR ---
PATIENT SLEEPING. VITAL SIGNS WNL. WILL CONTINUE TO MONITOR.
--- NOTE | 2022-08-05 04:23 | NUR ---
PATIENT IS SLEEPING NO CHANGE. BED IS IN LOWEST POSITION AND CALL LIGHT WITHIN REACH. WILL CONTINUE TO MONITOR.
--- NOTE | 2022-08-05 06:18 | NUR ---
PATIENT IS RESTING COMFORTABLY IN BED. IN NO ACUTE DISTRESS. EASILY AROUSED AND REAMINS ALERT FOR CONVERSATION CONFUSED ALERT TO SELF AND STATING THAT HE IS IN THE HOSPITAL BUT NOT ABLE TO SAY WHERE. DENIES PAIN PROVIDED ORAL HYDRATION. ROTHMAN DRAINING TO GRAVITY COORDINATE MEASURING MACHINE OPERATOR OUTPUT WAS 350ML ORANGE IN COLOR. SCDS IN PLACE. DAILY WEIGHT 85.4 KG. PATIENT HAD TWO BM BROWN WATERY. WILL CONTINUE TO MONITOR.
[2022-08-05 06:33] LABS: HEMOGLOBIN 11.5 g/dl (14.0-18.0); IMMATURE GRANULOCYTES 4.4 % (0.0-5.0); MEAN CELL VOLUME 99.7 fL CALC (80.0-100.0); MEAN CORPUSCULAR HGB 33.7 pG CALC (26.0-32.0); MEAN CORPUSCULAR HGB CONC 33.8 g/dL CAL (32.0-36.0); NEUT# 6.26 thou/uL (1.82-7.42); RED BLOOD COUNT 3.41 mill/uL (4.70-6.10); RED CELL DISTRI WIDTH 17.2 % (11.5-15.5)
[2022-08-05 06:43] LABS: BILIRUBIN, TOTAL 4.5 mg/dL (0.0-1.4); CREATININE 2.1 mg/dL (0.7-1.3); MAGNESIUM 1.5 mg/dL (1.6-2.3); POTASSIUM 3.4 mmol/l (3.5-5.1); TOTAL PROTEIN 5.7 g/dL (6.3-8.2)
[2022-08-05 06:49] LABS: INTERNATIONAL NORMALIZED RATIO 1.4 RATIO (0.7-1.3); PROTHROMBIN TIME 13.4 SECONDS (9.0-12.5)
--- NOTE | 2022-08-05 08:00 | NUR ---
PT SEEN AT REST IN THE BED, ALERT, BUT ORIENTED TO SELF ONLY. PT HEARD MUMBLING, NOT UNDERSTOOD, MICRONESIAN ONLY. LUNGS CLEAR, RA. PRODUCTIVE COUGH CLEARS PHLEGM EFFECTIVELY.
--- NOTE | 2022-08-05 10:00 | NUR ---
PT ASSISTED OOB IN TO CHAIR DR GIBSON REQUESTED. PT DID NOT HELP MUCH, APPEARS WEAK.
--- NOTE | 2022-08-05 12:11 | NUR ---
PT BACK TO BED WITH ASSIST FROM TELLO, PT TOO WEAK TO BEAR WEIGHT. TV ON IN [place] LANGUAGE.
--- NOTE | 2022-08-05 14:00 | NUR ---
PT AT REST IN THE BED, NO CHANGE IN STATUS. NO DISTRESS. NSR.
--- NOTE | 2022-08-05 16:03 | NUR ---
PT POCKETING BITES OF FOOD, SPITS OUT LATER. PT AT REST IN THE BED, NO CHANGE IN STATUS.
--- NOTE | 2022-08-05 18:27 | NUR ---
PT PROVIDED JELLO FOR SUPPER HE DOES NOT POCKET IT. PT WITH INTACT DRESSING SEEN TO COCCYX. NO BM THIS SHIFT.
--- NOTE | 2022-08-05 20:00 | NUR ---
PT ALERT AND ORIENTED, IN BED. PT COMPLETED ORTHOSTATIC BLOOD PRESSURE. 114/63 FLAT IN BED, 114/54 SITTING, AND 104/46 STANDING. PT DENIES DIZZINESS DURING EACH POSITIONS CHANGE. PT DENIES PAIN. PT BEING CLOSELY MONITORED.
[2022-08-06] VITALS (28 sets, daily range): BP systolic 71–120; BP diastolic 49–99
--- NOTE | 2022-08-06 00:02 | NUR ---
patient stable, asleep in bed. not in distress.
--- NOTE | 2022-08-06 02:15 | NUR ---
Patient asleep. Not in distress.
[2022-08-06 05:06] LABS: HEMATOCRIT 33.4 % (39.0-50.0); HEMOGLOBIN 11.4 g/dl (14.0-18.0); IMMATURE GRANULOCYTES 2.8 % (0.0-5.0); MEAN CELL VOLUME 98.2 fL CALC (80.0-100.0); MEAN CORPUSCULAR HGB 33.5 pG CALC (26.0-32.0); MEAN CORPUSCULAR HGB CONC 34.1 g/dL CAL (32.0-36.0); NEUT# 6.82 thou/uL (1.82-7.42); RED BLOOD COUNT 3.4 mill/uL (4.70-6.10); RED CELL DISTRI WIDTH 17.2 % (11.5-15.5)
[2022-08-06 05:40] LABS: BILIRUBIN, TOTAL 5.3 mg/dL (0.0-1.4); CREATININE 2.4 mg/dL (0.7-1.3); POTASSIUM 3.2 mmol/l (3.5-5.1); TOTAL PROTEIN 5.8 g/dL (6.3-8.2)
--- NOTE | 2022-08-06 07:30 | NUR ---
PT IS SLEEPING IN BED, PT IN NAD. PT HAS BEEN REPOSITIONED IN BED. PT DOESN'T FOLLOW COMMANDS, WHEN ASKED HOW HE IS FEELING, PT SPEECH IS GARBLED AND DIFFICULT TO UNDERSTAND. PT DID NOT ANSWER ORIENTATION QUESTIONS. PT HAS IVF INFUSING AT 50ML/HR. PT HAS ROTHMAN INTACT. PT HAS SCD'S IN PLACE AND ON FALL PRECAUTIONS. WILL CONTINUE TO MONITOR.
--- NOTE | 2022-08-06 09:20 | NUR ---
KASEY FULLER IN REGISTRATION PRESENT ON UNIT TO HELP TRANSLATE, PT IS HAVING A DIFFICULT TIME SPEAKING AND MAKING HIS WORDS MAKE SENSE. PER TRANSFER WORKER PT STATES HE KNOWS WHAT HE IS TRYING TO SAY BUT DOESN'T KNOW HOW TO SAY IT. HAS BEEN CALLED AND ORDERS R'CD TO REPEAT CT TO R/O STROKE.
--- NOTE | 2022-08-06 11:30 | NUR ---
PT WAS TAKEN DOWN TO MRI, MRI RESCHEDULED, PT TAKEN TO CT, PT BEGAN RESTLESS DURING SCAN, SPOKE TO DR TO RECEIVE MED ORDERS. PT WAS MEDICATED, PT THEN WAS TAKEN TO U/S. MRI WAS PLACED ON HOLD, FURTHER EVAL OF PT NEEDED. PT TRANSFERRED BACK TO ROOM. PT SLEEPING AND HAS NO CHANGE TO ASSESSMENT.
--- NOTE | 2022-08-06 13:37 | NUR ---
MIXER CRANE OPERATOR ATTEMPTED TO SEE PT IN AM. PT NPO D/T ULTRASOUND. MIXER CRANE OPERATOR TO F/U.
--- NOTE | 2022-08-06 13:45 | NUR ---
PT IS SLEEPING, PT HAS BEEN REPOSITIONED. PT VSS. WILL CONTINUE TO MONITOR.
--- NOTE | 2022-08-06 15:50 | NUR ---
PT HAS BEEN REPOSITIONED, APPLIED NEW DRSG TO WOUND, PICTURE HAS BEEN DOCUMENTED. PT HAS NO CHANGE TO ASSESSMENT.
--- NOTE | 2022-08-06 18:37 | NUR ---
PT IS SLEEPING, NO CHANGES TO ASSESSMENT.
--- NOTE | 2022-08-06 19:08 | NUR ---
patient in bed. Not in distress. Central line dressing changed. No redness, no discharge noted.
--- NOTE | 2022-08-06 20:01 | NUR ---
Patient in bed, not in distress. No complain of pain. Assessment done.
--- NOTE | 2022-08-06 21:59 | NUR ---
Patient awake. Not in distress. Patient repositioned.
[2022-08-07] VITALS (28 sets, daily range): BP systolic 72–127; BP diastolic 32–84
--- NOTE | 2022-08-07 00:01 | NUR ---
Patient in bed, not in distress.
--- NOTE | 2022-08-07 02:31 | NUR ---
patient cleaned and repositioned. Back tapping done. Encourage patient to cough.
--- NOTE | 2022-08-07 03:52 | NUR ---
Patient restless. Repsositioned and made comfrotable. Morning labs drawn.
[2022-08-07 06:17] LABS: ALBUMIN 2.1 g/dL (3.2-5.0); BILIRUBIN, TOTAL 5.2 mg/dL (0.0-1.4); CREATININE 2.7 mg/dL (0.7-1.3); MAGNESIUM 1.8 mg/dL (1.6-2.3); POTASSIUM 3.1 mmol/l (3.5-5.1); TOTAL PROTEIN 6.2 g/dL (6.3-8.2)
--- NOTE | 2022-08-07 07:00 | NUR ---
PT IS ALERT AND CONFUSED. PT IS ABLE TO MOVE ALL EXTREMITIES. PT IS AFEBRILE. PT IS NS ON THE MONITOR. BP IS ON THE SOFT SIDE. PT IS ON ROOM AIR. SPO2 IS WITHIN NORMAL LIMIT. PT HAS A WET PRODUCTIVE COUGH. PT IS HEMODYNAMICALLY STABLE. WILL CONTINUE TO MONITOR
--- NOTE | 2022-08-07 09:00 | NUR ---
PT IS ALERT AND CONFUSED. PT IS ABLE TO MOVE ALL EXTREMITIES. VSS. PT WAS TAKEN DOWN TO ULTRASOUND FOR US OF CHEST/PLEURAL. PT WAS TRANSPORTED VIA STRETCHER. NO S/S OF DISTRESS NOTED. PT IS STABLE. WILL CONTINUE TO MONITOR.
--- NOTE | 2022-08-07 11:00 | NUR ---
Pt is drowsy and confused. Pt is not following commands. Pt came to room and attempted to get pt up in the chair. Pt desated and changed color. Dr. Linton was notified. He was at bedside to assess the pt. ABG was ordered and performed. Chest xray ordered. Pt is NSR, BP vss and spo2 is 97 on RA. Will continue to monitor pt.
--- NOTE | 2022-08-07 13:00 | NUR ---
Pt is alert and confused. pt is hemodynamically stable. pt is afebrile. spo2 is within normal limit. will continue to monitor.
--- NOTE | 2022-08-07 15:00 | NUR ---
Pt is alert and confused. pt is NSR on the monitor. vss is stable. spo2 is within normal range. will continue to monitor.
--- NOTE | 2022-08-07 17:00 | NUR ---
Pt is alert and confused. pt is restless. pt is NSR on the monitor. Spo2 is within normal limit. Will continue to monitor pt.
--- NOTE | 2022-08-07 20:06 | NUR ---
Patient in bed. Not in distress.
--- NOTE | 2022-08-07 22:03 | NUR ---
Patient in bed. Not in distress.
--- NOTE | 2022-08-07 23:05 | NUR ---
CPT DONE TO ANTERIOR LUNG SOMMER. WEAK, LOOSE PRODUCTIVE COUGH. TOLERATED WELL.
[2022-08-08] VITALS (30 sets, daily range): BP systolic 78–117; BP diastolic 42–81
--- NOTE | 2022-08-08 00:03 | NUR ---
Patient in bed. Not in distress.
--- NOTE | 2022-08-08 02:03 | NUR ---
patient in bed. restless. repositioned.
--- NOTE | 2022-08-08 04:22 | NUR ---
patient restless. Blood sample drawn. patient repositioned.
[2022-08-08 04:49] LABS: HEMATOCRIT 30.8 % (39.0-50.0); HEMOGLOBIN 10.5 g/dl (14.0-18.0); MEAN CELL VOLUME 100.3 fL CALC (80.0-100.0); MEAN CORPUSCULAR HGB 34.2 pG CALC (26.0-32.0); MEAN CORPUSCULAR HGB CONC 34.1 g/dL CAL (32.0-36.0); RED BLOOD COUNT 3.07 mill/uL (4.70-6.10); RED CELL DISTRI WIDTH 17.9 % (11.5-15.5)
[2022-08-08 05:06] LABS: ALBUMIN 2.1 g/dL (3.2-5.0); BILIRUBIN, TOTAL 4.9 mg/dL (0.0-1.4); MAGNESIUM 1.7 mg/dL (1.6-2.3); POTASSIUM 3.1 mmol/l (3.5-5.1); TOTAL PROTEIN 6.2 g/dL (6.3-8.2)
--- NOTE | 2022-08-08 07:52 | NUR ---
PT MOVING HEAD ABOUT BUT NOT FOLLOWING COMMANDS OR ANSWERING TO NAME, REPOSITIONED IN BED
--- NOTE | 2022-08-08 10:18 | NUR ---
PT GIVEN COMPLETE BATH WITH LINEN CHANGE, WOUND CLEANED AND RE-DRESSED, PT O2 SAT DID NOT DROP WITH REPOSITIONING
--- NOTE | 2022-08-08 11:13 | NUR ---
OT attempted to provide therapy to pt; nursing and speech with pt inserting NG tube. Pt not appropriate for therapy at this time.
--- NOTE | 2022-08-08 12:11 | NUR ---
PT SLEEPING SOUNDLY, REPOSITIONED, K+ REPLACEMENT INFUSING
--- NOTE | 2022-08-08 14:16 | NUR ---
PT MORE AWAKE AGIN, RESTING, REPOSITIONED
--- NOTE | 2022-08-08 14:40 | NUR ---
#8 dobhoff tube placed, awaiting report of PCXR
--- NOTE | 2022-08-08 16:34 | NUR ---
dobhoff repositioned, new PCXR ordered to confirm placement
--- NOTE | 2022-08-08 16:55 | NUR ---
potable chest xray done, awaiting read
--- NOTE | 2022-08-08 20:00 | NUR ---
PATIENT IS AWAKE, RESTLESS BUT IS NOT ORIENTED. DOES NOT FOLLOW COMMANDS. MOVES ALL EXTREMITIES SPONTANEOUSLY. RIGHT IS NOTED TO BE STRONGER THAN THE LEFT. SINUS RHYTHM - HR 82. BP STABLE, BUT LOW. METOPROLOL WAS HELD PER BP PARAMETERS. ROOM AIR. WEAK, CONGESTED COUGH. SUCTIONED PRN BUT HAS MINIMAL SECRETIONS. LARGE BOWEL MOVEMENT. BOWEL SOUNDS HYPOACTIVE. TURNED AND REPOSITIONED. BATHED. COCCYX WOUND DRESSING CHANGED.
--- NOTE | 2022-08-08 20:00 | NUR ---
PATIENT IS AWAKE AND RESTLESS. DOES NOT FOLLOW COMMANDS. MOVES ALL EXTREMITIES SPONTANEOUSLY. RIGHT SIDE IS NOTED TO BE STRONGER THAN THE LEFT SIDE. ATRIAL FIBRILLATION - HR 85. BP STABLE, BUT LOW. METOPROLOL WAS HELD PER PARAMETERS. ROOM AIR. WEAK, CONGESTED COUGH. PATIENT WAS SUCTIONED, BUT MINIMAL SECRETIONS WERE NOTED. CLEAR, DIMINISHED LUNG SOUNDS WITH AN EXPIRATORY WHEEZE. LARGE BOWEL MOVEMENT. BOWEL SOUNDS ARE HYPOACTIVE. ABDOMEN IS FIRM AND DISTENDED. PATIENT WAS REPOSITIONED. COCCYX WOUND DRESSING WAS REAPPLIED.
--- NOTE | 2022-08-08 22:09 | NUR ---
PATIENT REMAINS CONFUSED AND RESTLESS. ATRIAL FIBRILLATION. HYPOTENSIVE, WILL CONTINUE TO MONITOR. WEAK, CONGESTED COUGH. SUNCTIONED. MINIMAL BLOODY SECRETIONS. NO BOWEL MOVEMENT NOTED. REPOSITIONED.
[2022-08-09] VITALS (28 sets, daily range): BP systolic 69–103; BP diastolic 43–72
--- NOTE | 2022-08-09 00:32 | NUR ---
PATIENT IS AWAKE, RESTLESS, AND DISORIENTED. UNABLE TO FOLLOW COMMANDS. MOVES EXTREMITIES SPONTANEOUSLY. RIGHT REMAINS STRONGER THAN THE LEFT SIDE. CONVERTED BACK TO SINUS RHYTHM - HR 74. ROOM AIR. WEAK, CONGESTED COUGH. DOES NOT REQUIRE SUCTIONING AT THIS TIME. LARGE BOWEL MOVEMENT. BOWEL SOUNDS REMAIN HYPOACTIVE. ABDOMEN IS FIRM AND DISTENDED.
--- NOTE | 2022-08-09 04:33 | NUR ---
RESTLESS AND AGITATED. REPOSITIONING AND REORIENTATION TRIED TO REDUCE AGITATION BUT UNSUCCESSFUL. MOVES EXTREMITIES SPONTANEOUSLY, BUT DOES NOT FOLLOW COMMANDS. RIGHT SIDE IS SIGNIFICANTLY STRONGER THAN THE LEFT. SINUS RHYTHM - HR 78. HYPOTENSIVE, CONTINUE TO MONITOR. ROOM AIR. SUCTIONED FOR A MODERATE AMOUNT OF BLOODY, THICK SECRETIONS. RESPIRATORY QUALITY IMPROVED FOLLOWING SUCTIONING. LARGE BOWEL MOVEMENT. ABDOMEN REMAINS FIRM AND DISTENDED.
[2022-08-09 05:31] LABS: HEMATOCRIT 32.4 % (39.0-50.0); HEMOGLOBIN 10.8 g/dl (14.0-18.0); MEAN CELL VOLUME 102.2 fL CALC (80.0-100.0); MEAN CORPUSCULAR HGB 34.1 pG CALC (26.0-32.0); MEAN CORPUSCULAR HGB CONC 33.3 g/dL CAL (32.0-36.0); NEUT# 5.06 thou/uL (1.82-7.42); RED BLOOD COUNT 3.17 mill/uL (4.70-6.10); RED CELL DISTRI WIDTH 18.9 % (11.5-15.5)
[2022-08-09 05:58] LABS: BILIRUBIN, TOTAL 4.5 mg/dL (0.0-1.4); CREATININE 3.5 mg/dL (0.7-1.3); MAGNESIUM 1.7 mg/dL (1.6-2.3); POTASSIUM 3.5 mmol/l (3.5-5.1)
--- NOTE | 2022-08-09 06:09 | NUR ---
PATIENT IS VERY RESTLESS. TRIED REPOSITIONING AND REORIETATION TO PROMOTE COMFORT BUT WAS UNSUCCESSFUL. LARGE BOWEL MOVEMENT. COCCYX WOUND WAS CLEANSED AND DRESSING WAS CHANGED. SINUS RHYTHM - HR 72. HYPOTENSIVE, WILL CONTINUE TO MONITOR. ROOM AIR. WEAK, CONGESTED COUGH.
--- NOTE | 2022-08-09 08:21 | NUR ---
SPEECH PATHOLOGY-- PRESSER ALL AROUND ATTEMPTED TO SEE THIS AM. PT NOT ALERT ENOUGH FOR INTERVENTION AT THIS TIME. PRESSER ALL AROUND WILL CONTINUE TO F/U.
--- NOTE | 2022-08-09 08:31 | NUR ---
RT gave resp treatment for wheezes throughout, Dr Burton in to see pt, see new orders, pt is not responding to voice, only painful stimuli, moving head about, tube feed running, water flush increased, pt moves all extremities but has noted weakness in L arm, cap refill >3 seconds, dark ronen urine
--- NOTE | 2022-08-09 10:01 | NUR ---
90 ml residual from tube feed, replaced and tube flushed, feed restarted
--- NOTE | 2022-08-09 10:42 | NUR ---
pt cleaned of stool, bathed with complete linen change, repositioned
--- NOTE | 2022-08-09 12:24 | NUR ---
pt repositioned, wakes when moved but does not track movement or follow commands, albumin finished infusing, lungs now with no wheezes
--- NOTE | 2022-08-09 14:16 | NUR ---
pt repositioned, no changes in mentatiom
--- NOTE | 2022-08-09 16:26 | NUR ---
mouth care done, pt repositioned, RETICLE PRINTER has been here to eval pt and complete proxy paperwork, pt continues awake but not alert, does not track or follow commands
--- NOTE | 2022-08-09 18:17 | NUR ---
albumin infusing, pt repositioned, mental status remains unchanged
--- NOTE | 2022-08-09 19:05 | NUR ---
eyes open. shaking head back & forth. does not follow commands. sclera jaundiced. diagnostic cardiac sonographer shows sinus rhythm. rij tlc in place. ivf infusing well. tube feeding conts. solano cath in place draining small amount dk ronen urine. bilat scds cont. requires total care for all needs. dsg cdi to coccyx. turned & repositioned.
--- NOTE | 2022-08-09 22:00 | NUR ---
awake. cont to shake head back & forth. no acute distress.
[2022-08-10] VITALS (16 sets, daily range): BP systolic 91–130; BP diastolic 57–104
--- NOTE | 2022-08-10 00:01 | NUR ---
eyes open. cont to shake head back & forth.
--- NOTE | 2022-08-10 02:00 | NUR ---
awake. restless when any care is given. VERY difficult to give oral care.
--- NOTE | 2022-08-10 04:00 | NUR ---
awake. cont to shake head back & forth. no distress. cardiac/vascular sonographer shows sinus rhythm.
--- NOTE | 2022-08-10 05:15 | NUR ---
blood drawn & sent to lab.
[2022-08-10 05:40] LABS: CREATININE 3.9 mg/dL (0.7-1.3); POTASSIUM 3.3 mmol/l (3.5-5.1)
[2022-08-10 05:45] LABS: ALBUMIN 2.5 g/dL (3.2-5.0)
--- NOTE | 2022-08-10 06:00 | NUR ---
has been awake all shift. cont to shake head back & forth. bus monitor shows sinus rhythm.
--- NOTE | 2022-08-10 08:00 | NUR ---
PATIENT IS NON RESPONSIVE, 4MM BILATERAL EYES, SCLERA IS JAUNDICE IN [place], POOR DENTAL CARE, CONSTANTLY SHAKING HIS HEAD, APPEARS VERY RESTLESS, NIGHT NURSE STATED HE HASNT SLEPT ALL NIGHT. CRACKLES THROUGHOUT LUNGS. FIRM DISTENDED ABDOMEN. NG TUBE PLACED. TUBE FEEDINGS HELD DUE TO HAVING 100CC OUT OF RESIDUAL. WILL START AGAIN LATER. EDEMA PRESENT BUE AND BLE 1+PITTING. WOUND ON COCCYX, PICTURE IN CHART, C/D/I DRESSING. SCDS IN PLACE AND WORKING. DARK RUTHIE URINE IN ROTHMAN. GROIN AREA IS IMPROVING, BUTT PASTE BEING APPLIED. SAFETY MEASURES IN PLACE. CALL LIGHT IN REACH. WILL COTNINUE TO MONITOR [facility]'S POLICY.
--- NOTE | 2022-08-10 10:10 | NUR ---
GUME NURSE IS AT BEDSIDE
--- NOTE | 2022-08-10 12:00 | NUR ---
ng tube was removed per doctors orders.
--- NOTE | 2022-08-10 13:52 | NUR ---
SPEECH PATHOLOGY-- PT NOT APPROPRIATE FOR ST INTERVENTIONS AT THIS TIME D/T CURRENT MEDICAL STATUS. PT CONTINUING TO RECEIVE ALTERNATE MEANS OF NUTRITION. PT CURRENTLY WITH HOSPICE CONSULT. PUBLICATION DISTRIBUTOR TO D/C SERVICES WITH IMPLEMENTATION OF COMFORT MEASURES.
--- NOTE | 2022-08-10 15:49 | NUR ---
[facility] arrived to take patient to hospice house.
--- NOTE | 2022-08-10 18:24 | NUR ---
CALLED [employer] SPOKE TO [employer] FOR A PICKUP WAS GIVEN CONFIRMATION NUMBER [phone].
== END 2022-08-10 16:16 | disposition hospice, inpatient (51) | DRG 871 ==
LOC: ED 20:23 → EDBD 20:23 → ED 21:11 → ED-I 23:23 → ED 07-26 00:25 → ICU 07-26 00:26
PROVIDERS: Family Medicine; Internal Medicine; Internal Medicine Nephrology; Nurse Practitioner; ADMIT Internal Medicine; ATTEND Internal Medicine
PROC: 0T9B70Z Drainage of Bladder with Drainage Device, Via Natural or Artificial Opening (ICD-10-PCS; principal; 2022-07-26)
PROC: 3E033XZ Introduction of Vasopressor into Peripheral Vein, Percutaneous Approach (ICD-10-PCS; 2022-07-27)
PROC: 02HV33Z Insertion of Infusion Device into Superior Vena Cava, Percutaneous Approach (ICD-10-PCS; 2022-07-29)
PROC: 30243R1 Transfusion of Nonautologous Platelets into Central Vein, Percutaneous Approach (ICD-10-PCS; 2022-07-29)
PROC: 0BH17EZ Insertion of Endotracheal Airway into Trachea, Via Natural or Artificial Opening (ICD-10-PCS; 2022-07-29)
PROC: 5A1945Z Respiratory Ventilation, 24-96 Consecutive Hours (ICD-10-PCS; 2022-07-29)
DX: A41.9 Sepsis, unspecified organism (principal); R65.21 Severe sepsis with septic shock; G93.41 Metabolic encephalopathy; K85.20 Alcohol induced acute pancreatitis without necrosis or infection; J18.9 Pneumonia, unspecified organism; J96.02 Acute respiratory failure with hypercapnia; J96.01 Acute respiratory failure with hypoxia; N17.0 Acute kidney failure with tubular necrosis; M62.82 Rhabdomyolysis; F10.231 Alcohol dependence with withdrawal delirium; E87.2 Acidosis; E87.0 Hyperosmolality and hypernatremia; I48.91 Unspecified atrial fibrillation; K70.10 Alcoholic hepatitis without ascites; D69.59 Other secondary thrombocytopenia; E86.9 Volume depletion, unspecified; T36.8X5A Adverse effect of other systemic antibiotics, initial encounter; R13.10 Dysphagia, unspecified; E87.6 Hypokalemia; K82.8 Other specified diseases of gallbladder; K70.40 Alcoholic hepatic failure without coma; E83.42 Hypomagnesemia; R91.8 Other nonspecific abnormal finding of lung field; I95.9 Hypotension, unspecified; L89.152 Pressure ulcer of sacral region, stage 2; L30.4 Erythema intertrigo; K70.0 Alcoholic fatty liver; Z20.822 Contact with and (suspected) exposure to COVID-19; Z51.5 Encounter for palliative care
CPT/HCPCS: J0282; J0692; J1650; J2060; J3475; P9037; P9047; Q3014; Q9967